=== PATIENT | female | born 1950 ===

== ENCOUNTER 2025-03-24 09:20 | Outpatient (CLI) | payer MEDICARE | END 2025-03-24 09:21 | disposition home or self-care (01) | LOC: CSHMAMMO 09:20 | PROVIDERS: ATTEND Internal Medicine | DX: R92.8 Other abnormal and inconclusive findings on diagnostic imaging of breast (principal); Z80.3 Family history of malignant neoplasm of breast | CPT/HCPCS: 77065; G0279 ==